=== PATIENT | female | born 1980 | race Caucasian/White ===

== ENCOUNTER 2024-02-19 16:53 | Emergency (ER) | payer OTHER ==
[2024-02-19 17:34] LABS: BASOPHILS % (AUTO) 0.4 %; EOSINOPHILS % (AUTO) 0.5 %; HCT - HEMATOCRIT 36.6 % (37.0-47.0); HGB - HEMOGLOBIN 11.9 g/dL (12.0-16.0); LYMPHOCYTES % (AUTO) 27.9 %; MEAN CORPUSCULAR HEMOGLOBIN 28.2 pg (27.0-31.0); MEAN CORPUSCULAR HGB CONC 32.5 g/dL (32.0-36.0); MEAN CORPUSCULAR VOLUME 86.7 fL (81.0-99.0); MEAN PLATELET VOLUME 10.9 fL (7.9-10.8); MONOCYTES # (AUTO) 0.4 10^3/uL (0.0-1.0); MONOCYTES % (AUTO) 5.9 %; NEUTROPHILS # (AUTO) 4.8 10^3/uL (1.5-6.6); NEUTROPHILS % (AUTO) 65.2 %; PLT - PLATELET COUNT 194 10^3/uL (130-450); RED BLOOD COUNT 4.22 10^6/uL (4.20-5.40); RED CELL DISTRIBUTION WIDTH 13.9 % (12.0-15.0); WHITE BLOOD COUNT 7.3 x10^3/uL (4.8-10.8)
[2024-02-19 17:49] LABS: ALBUMIN/GLOBULIN RATIO 1.4 (1.0-2.2); BILIRUBIN,TOTAL 0.3 mg/dL (0.2-1.0); CALCIUM 9.4 mg/dL (8.5-10.3); CREATININE 0.6 mg/dL (0.6-1.3); POTASSIUM 3.9 mmol/L (3.5-4.5); TOTAL PROTEIN 6.8 g/dL (6.4-8.9)
[2024-02-19 18:38] LABS: BILIRUBIN,URINE NEGATIVE (NEGATIVE); GLUCOSE, URINE (UA) NEGATIVE (NEGATIVE); KETONES,URINE (UA) NEGATIVE (NEGATIVE); LEUKOCYTE ESTERASE, URINE NEGATIVE (NEGATIVE); NITRITE,URINE NEGATIVE (NEGATIVE); OCCULT BLOOD,URINE NEGATIVE (NEGATIVE); PROTEIN,URINE NEGATIVE (NEGATIVE); UROBILINOGEN,URINE 0.2 (NORMAL) E.U./dL (NORMAL)
[2024-02-19 18:40] LABS: CLARITY,URINE CLEAR (CLEAR)
[2024-02-19 18:41] LABS: HCG UR QUAL POSITIVE
[2024-02-19 18:44] VITALS: O2SAT 99
--- NOTE | 2024-02-19 19:06 | ED Physician Documentation ---
History of Present Illness - Stated complaint Stated Complaint: - Chief complaint Chief Complaint: Abd Pain - Additonal information Additional information: 43-year-old female presents emergency department for concerns of abdominal cramping. She is G6, P2 currently 8 weeks she had 2 abortions and 1 miscarriage. Pain started around last night and she has been fluctuating between hot and cold flashes mild nausea with large amount of vomiting she said over the last 10 days she is only had 1 bowel movement and she is unable to remember she had history of constipation with her previous . Patient was also concerned that she may be having some vaginal discharge that is bloody. When she shows me pictures it is very subtly brown-tinged possibly indicative of blood but very very faint and very scant. 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 - Present Medications Home Medications: Ambulatory Orders Medication Instructions Recorded Confirmed No Known Home Medications 02/19/24 02/19/24 - Allergies Allergies/Adverse Reactions: Allergies Allergy/AdvReac Type Severity Reaction Status Date / Time levofloxacin [From Levaquin] Allergy Hives Verified 02/19/24 17:00 - Social History Does the pt smoke?: No Smoking Status: Never smoker Does the pt drink ETOH?: No Does the pt have substance abuse?: No - Immunizations Immunizations are current?: Yes - POLST Patient has POLST: No PD ED PE NORMAL - Vitals Vital signs reviewed: Yes - General General: Alert and oriented X 3, No acute distress, Well developed/nourished - Cardiac Cardiac: RRR - Respiratory Respiratory: No respiratory distress - Abdomen Abdomen: Normal bowel sounds, Soft, Non tender, No organomegaly, Other (Mild distention) - Back Back: No CVA TTP - Derm Derm: Normal color, Warm and dry, No rash - Psych Psych: Normal mood Results - Vitals Vitals: Vital Signs - 24 hr 02/19/24 02/19/24 02/19/24 17:00 18:42 19:34 Temperature 36.5 C 37.1 C Heart Rate 82 70 72 Respiratory 16 16 16 Rate Blood Pressure 129/87 H 119/75 115/83 H O2 Saturation 100 99 99 Oxygen O2 Source Room air - Labs Labs: Laboratory Tests 0902/19/24 02/19/24 17:14 17:29 17:29 WBC 7.3 RBC 4.22 Hgb 11.9 L Hct 36.6 L MCV 86.7 MCH 28.2 MCHC 32.5 RDW 13.9 Plt Count 194 MPV 10.9 H Neut # (Auto) 4.8 Lymph # (Auto) 2.0 [place] # (Auto) 0.4 Eos # (Auto) 0.0 Baso # (Auto) 0.0 Absolute Nucleated RBC 0.00 Nucleated RBC % 0.0 Sodium 134 L Potassium 3.9 Chloride 103 Carbon Dioxide 26 Anion Gap 5.0 L BUN 10 Creatinine 0.6 Estimated GFR (MDRD) 110 Glucose 93 Calcium 9.4 Total Bilirubin 0.3 AST 14 ALT 11 Alkaline Phosphatase 50 Total Protein 6.8 Albumin 4.0 Globulin 2.8 Albumin/Globulin Ratio 1.4 Lipase 123 H Beta HCG, Quant Urine Color YELLOW Urine Clarity CLEAR Urine pH 6.0 Ur Specific Premium 1.025 Urine Protein NEGATIVE Urine Glucose (UA) NEGATIVE Urine Ketones NEGATIVE Urine Occult Blood NEGATIVE Urine Nitrite NEGATIVE Urine Bilirubin NEGATIVE Urine Urobilinogen 0.2 (NORMAL) Ur Leukocyte Esterase NEGATIVE Ur Microscopic Review NOT INDICATED Urine Culture Comments NOT INDICATED Urine HCG, Qual POSITIVE 02/19/24 17:29 WBC RBC Hgb Hct MCV MCH MCHC RDW Plt Count MPV Neut # (Auto) Lymph # (Auto) [place] # (Auto) Eos # (Auto) Baso # (Auto) Absolute Nucleated RBC Nucleated RBC % Sodium Potassium Chloride Carbon Dioxide Anion Gap BUN Creatinine Estimated GFR (MDRD) Glucose Calcium Total Bilirubin AST ALT Alkaline Phosphatase Total Protein Albumin Globulin Albumin/Globulin Ratio Lipase Beta HCG, Quant > 359922.0 Urine Color Urine Clarity Urine pH Ur Specific Premium Urine Protein Urine Glucose (UA) Urine Ketones Urine Occult Blood Urine Nitrite Urine Bilirubin Urine Urobilinogen Ur Leukocyte Esterase Ur Microscopic Review Urine Culture Comments Urine HCG, Qual PD Medical Decision Making - ED course ED course: 43-year-old female presents emergency department for concerns of possible miscarriage. She has no leukocytosis very mild anemia, hemoglobin 11.9 no significant electrolyte abnormalities she does have a slightly elevated lipase at 123 but no right upper quadrant pain or tenderness. Patient reports her last beta-hCG was 162,000 today her beta-hCG is trending up significantly at 248,000 she has no vaginal bleeding normal vaginal discharge no malodorous vaginal discharge. No urinary incontinence no urinary urgency or frequency. I informed the patient that we will do an ultrasound to rule out possible ectopic with her abdominal cramping but patient said that she did not want to wait any longer and felt comfortable discharging home. I informed the patient that I cannot entirely rule out ectopic unless she has an ultrasound and patient said that she was okay and felt comfortable discharging home and felt reassured that this is most likely constipation after finding out that her hCG is trending up. 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 Departure - Departure Disposition: 01 Home, Self Care Clinical Impression: Abdominal pain affecting , Abdominal cramping, Constipation Instructions: ED Constipation Comments: Thank you for trusting us with your care. Keep your phone on you elevated could be a late phone call I will call you if your hCG results are trending down if they are staying stable or increasing you will not hear from me. If your abdominal pain gets any worse please come back to the emergency department immediately for reevaluation as we discussed I am not confidently saying that you are not experiencing an ectopic . For your constipation I want you to drink tons of water get lots of movement and start taking MiraLAX. You can buy this [id number] and I would also encourage taking things like prune juice and prunes to help with having more regular bowel movements. If you are still struggling with constipation I would give yourself a Fleet enema to get things moving again. Please come back to the ER again if you are having any worsening symptoms or any vaginal bleeding or severe abdominal cramping. Forms: PCP List Discharge Date/Time: 02/19/24 19:34
[2024-02-19 19:39] VITALS: BP 115/83
== END 2024-02-19 19:34 | disposition home or self-care (01) ==
LOC: ED 16:53
DX: O26.891 Other specified pregnancy related conditions, first trimester (principal); R10.9 Unspecified abdominal pain; K59.00 Constipation, unspecified; O99.011 Anemia complicating pregnancy, first trimester; O09.511 Supervision of elderly primigravida, first trimester; Z3A.08 8 weeks gestation of pregnancy
CPT/HCPCS: 36415; 80053; 81001; 81003; 81025; 83690; 84702; 85025; 87086; 99283